=== PATIENT | male | born 1980 | race Hispanic/Latino ===

== ENCOUNTER 2023-01-27 04:56 | Emergency (ER) | payer SELFPAY ==
[2023-01-27 04:58] VITALS: BP 138/89; PULSE 69; RESP 20; TEMP 36.1; O2SAT 92; BMI 31.6
--- NOTE | 2023-01-27 05:03 | CT_ITS ---
EXAM: CT ABDOMEN AND PELVIS WITH INTRAVENOUS CONTRAST CLINICAL INDICATION: LLQ pain LLQ pain TECHNIQUE: Helically acquired images were obtained of the abdomen and pelvis with intravenous contrast. This CT exam was performed using one or more of the following dose reduction techniques: automated exposure control, adjustment of the mA and/or kV according to patient size, and/or use of iterative reconstruction technique. CONTRAST: IV 100mL Isovue-370 RADIATION DOSE: CTDIvol = 14.82 mGy, DLP = 861.49 mGy-cm COMPARISON: No relevant prior studies available. FINDINGS: LOWER THORAX: Unremarkable. Lung bases are clear. No cardiomegaly. No significant pericardial effusion. ABDOMEN: LIVER: Unremarkable. Homogeneous. No focal mass. GALLBLADDER AND BILE DUCTS: Unremarkable. No calcified gallstones. No gallbladder distention or wall edema. No intra- or extrahepatic biliary ductal dilation. PANCREAS: Unremarkable. No focal cystic or solid mass. SPLEEN: Unremarkable. Normal size without focal cystic or solid mass. ADRENALS: Unremarkable. No nodules. KIDNEYS AND URETERS: There is a small left renal cyst which is too small to reliably characterize. No follow-up imaging is necessary for simple renal cysts or cysts that are too small to characterize. Normal renal size and position. No hydronephrosis. STOMACH AND BOWEL: There are colonic diverticula. As seen on axial images 74-90, there is infiltration of fat overlying the anterior and lateral aspects of the distal descending colon. There is no demonstrated mural thickening of the adjacent colon and configuration of the anterior fat infiltration suggest epiploic appendagitis. Acute diverticulitis in this region is thought to be unlikely. No stomach or bowel distention. PELVIS: APPENDIX: A normal appendix is seen on axial images 71-81. BLADDER: Unremarkable. REPRODUCTIVE: Unremarkable as visualized. No mass. ABDOMEN and PELVIS: INTRAPERITONEAL SPACE: Unremarkable. No ascites or other fluid collection. No free air. BONES/JOINTS: There are multilevel degenerative changes in the visualized spine. No suspicious lytic or blastic abnormality. SOFT TISSUES: There are bilateral inguinal hernias which contain fat. VASCULATURE: Unremarkable. Abdominal aorta is non-dilated. LYMPH NODES: Unremarkable. No enlarged lymph nodes. CT/Abdomen/Pelvis W IV Cont ONLY IMPRESSION: 1. Infiltration of fat adjacent to the distal descending colon. This is likely to represent epiploic appendagitis. 2. Colonic diverticulosis. Acute diverticulitis is thought to be unlikely. 3. Bilateral inguinal hernias containing fat, but no bowel. Electronically Signed: Darren Ma MD at 6:33 EDT Reading Location ID and State: [facility] / [place] , Service support ,
--- NOTE | 2023-01-27 05:05 | ED.VIS.GI ---
HPI HPI - GI History of Present Illness Chief Complaint: Abd Pain Informant: patient Abdominal Pain/Flank Pain Onset: Days (1-2) Context: Gradual Onset Timing: Continuous Quality: Aching Location: LLQ Current Severity: Severe Maximum Severity: Severe Worsened by: - (walking, coughing) Relieved by: Remaining Still Nausea/Vomiting/Emesis GI Symptom: Positive for Nausea; Negative for Vomiting Diarrhea/Melena/Hematochezia GI Symptom: Negative for Diarrhea, Melena or Hematochezia Associated Symptoms Associated Symptoms: Negative for Dysuria, Frequency, Hematuria or Urgency Narrative Narrative: Fijian-speaking patient with progressively worsening pain in the left lower quadrant seem to start gradually yesterday. States he had this before, but it was not this bad. Takes no medications for any medical problems. Denies any problems urinating, pain is not in his back or in his chest. No vomiting. No blood in stool. Initially last putter away line was accessed but we had technical difficulties with the hardware and were unable to use it to translate, so the patient was okay with my limited Fijian and using his own cell phone eris to help translate when necessary. PFSH PFSH Medical History no medical history no medical history Home Medications amoxicillin 875 mg-potassium clavulanate 125 mg tablet 875 mg (0.875 x 875-125 mg) PO Q12H #20 TABLETS 01/27/23 [Rx Last Taken Unknown] hydrocodone-acetaminophen 5-325mg 5mg-325mg 1 tab PO Q6H PRN PRN Pain 3 days #12 TABLETS 01/27/23 [Rx Last Taken Unknown] Allergy/AdvReac Type Severity Reaction Status Date / Time No Known Allergies Allergy Verified 01/27/23 05:07 Surgical History no surgical history no surgical history Social History Smoking Status: Never smoker ROS ROS ED Constitutional Constitutional ED: Denies chills or fever(s) Eyes Eyes: Denies change in vision or diplopia ENT ENT ED: Denies rhinorrhea or sore throat Cardiovascular Cardiovascular: Denies chest pain or palpitations Respiratory/Chest Respiratory/Chest: Denies cough or dyspnea Gastrointestinal Gastrointestinal: Reports abdominal pain and nausea; Denies diarrhea, hematochezia or vomiting Genitourinary Genitourinary ED: Denies dysuria or hematuria Musculoskeletal Musculoskeletal: Denies back pain or neck pain Integumentary Denies abscess or rash Neurologic Neurologic: Denies headache(s), paresthesias or weakness Psychiatric Psychiatric: Denies anxiety or suicidal thoughts EXAM Physical Exam Const Vital Signs: 01/27/23 04:58 Temperature 97 F L Temperature Source Temporal Pulse Rate 69 Respiratory Rate 20 H Blood Pressure 138/89 H Blood Pressure Mean 105 Pulse Ox 92 Oxygen Delivery Method Room Air Positive well nourished and well developed General Appearance ED: well developed and NAD HEENT Reports moist mucous membranes normocephalic and atraumatic Eyes PERRL and EOMs intact bilaterally Neck full ROM and supple Resp normal respiratory effort and clear to auscultation bilaterally Cardio regular rate, regular rhythm and no murmurs GI non-distended GI Narrative: Very tender in the left lower quadrant, also tender in the left mid and upper abdomen but not as bad as the lower. No guarding or rebound tenderness. No other areas of tenderness, right side of the abdomen benign throughout. Auscultation: normoactive bowel sounds Palpation: soft Back/Spine no CVA tenderness General Back: other FROM Extremity normal to inspection General Extremety ED: Negative for edema, pulses abnormal or tenderness General Extremity: Negative for edema or pulses abnormal Neuro oriented x3, CN's II-XII intact bilaterally and no sensory deficits noted Sensorium / Orientation: awake and alert Motor Exam: strength 5/5 throughout Skin no rashes or lesions noted and no wounds MDM MDM MDM Narrative Medical decision making narrative: Basic labs are unremarkable, I did perform a CT scan with IV contrast involving the abdomen and pelvis, given that diverticulitis was high on the differential, but also kidney stone and/or infection also in the realm of possibility. I reviewed the CT images, as well as report which I agree with, which is consistent with epiploic appendagitis, but radiology also states that there is diverticulosis, my concern is that this could be a component of diverticulitis. He does not have a significant leukocytosis, but I am going to err on the side of caution and treat him for diverticulitis because he does not have a PCP or close outpatient follow-up. He does not have any antibiotic or medication allergies. Because he drove himself, we treated him with IV fluids, Zofran, Toradol, although it did not help his pain a lot, he was stable and able to be given a prescription for pain medication which she can take when he gets home. We will start him on antibiotics, since we have an IV will give him a dose of Zosyn, and will prescribe him Augmentin to use at home. We had a conversation using a last putter away apps on cell phone, and answered all of his questions to the best of my ability. Close outpatient follow-up advised, referred to the next physician on the unassigned list. History & Record Review Additional record(s) reviewed:: No prior records Lab Data Attestation: I reviewed the patient's lab results. Labs: Laboratory Results - last 24 hr 01/27/23 01/27/23 05:14 05:49 WBC 8.6 RBC 5.09 Hgb 14.1 Hct 42.5 MCV 83.5 MCH 27.7 MCHC 33.2 RDW Std Deviation 39.6 RDW Coeff of Radha 13.0 Plt Count 296 MPV 10.1 Immature Gran % (Auto) 0.300 Neut % (Auto) 58.0 Lymph % (Auto) 30.3 [place] % (Auto) 7.1 Eos % (Auto) 3.8 Baso % (Auto) 0.5 Absolute Neuts (auto) 5.0 Absolute Lymphs (auto) 2.60 Nucleated RBC % 0 Sodium 139 Potassium 3.9 Chloride 109 H Carbon Dioxide 26.0 Anion Gap 4 L BUN 12 Creatinine 0.81 Estim Creat Clear Calc 97.57 Est GFR (MDRD) Af Amer 135 Est GFR (MDRD) Non-Af 112 BUN/Creatinine Ratio 14.8 Glucose 99 Calcium 8.5 Urine Color Yellow Urine Clarity Clear Urine pH 6.5 Ur Specific [place] 1.005 Urine Protein 15 H Urine Glucose (UA) Normal Urine Ketones Negative Urine Occult Blood Negative Urine Nitrite Negative Urine Bilirubin Negative Urine Urobilinogen Normal Ur Leukocyte Esterase Negative Urine RBC 0 SEEN Urine WBC 0 SEEN Ur Squamous Epith Cells 0 SEEN Urine Bacteria 0 SEEN Urine Mucus 0 SEEN Radiography Diagnostic Testing: Clinical Impression(s) from Imaging Studies Abdomen/Pelvis CT 01/27/23 05:03 IMPRESSION: 1. Infiltration of fat adjacent to the distal descending colon. This is likely to represent epiploic appendagitis. 2. Colonic diverticulosis. Acute diverticulitis is thought to be unlikely. 3. Bilateral inguinal hernias containing fat, but no bowel. Electronically Signed: Darren Ma MD at 6:33 EDT , Discharge Plan Triage Chief Complaint: Abd Pain ED Provider: Toni Cisneros Dx/Rx/DC Orders Clinical Impression: Acute diverticulitis, Epiploic appendagitis Instructions: Diverticulitis Dc Prescriptions: New hydrocodone-acetaminophen [hydrocodone-acetaminophen] 5-325 mg tablet 1 tab PO Q6H PRN PRN (Reason: Pain) 3 Days Qty: 12 0RF amoxicillin-pot clavulanate [amoxicillin-pot clavulanate] 875-125 mg tablet 875 mg PO Q12H Qty: 20 0RF Primary Care Provider: Care Physician,No Primary Referrals: Farzana Jasso MD [Med Staff - Household Appliances Service Technician] - 1 Week (call for appt) Care Physician,No Primary [Primary Care Provider] - Print Language: Fijian Disposition Disposition: Home, Self Care
[2023-01-27] MEDS: Ketorolac 30 MG/ML Syringe IV (05:10)
[2023-01-27] MEDS: 0.9% Normal Saline 1,000 ML 1000 ML IV (05:10)
[2023-01-27] MEDS: Ondansetron 4 MG/2 ML Vial IV (05:10)
[2023-01-27 05:23] LABS: Basophil# 0.04 X10^3/uL; Basophil% 0.5 % (0-1); Eosinophil# 0.33 X10^3/uL; Eosinophils% 3.8 % (0-5); Hematocrit 42.5 % (40-54); Hemoglobin 14.1 g/dL (13.0-16.5); Lymphocyte % 30.3 % (19-41); Mean Corp Hgb Conc 33.2 g/dL (32-36); Mean Corpuscular Hgb 27.7 pg (27.0-32.0); Mean Corpuscular Volume 83.5 fL (80-94); Mean Platelet Vol. 10.1 fl (6.2-12.0); Monocyte# 0.61 X10^3/uL; Monocyte% 7.1 % (0-10); NRBC Flagged by Analyzer 0 % (0-5); Neutrophil # 4.97 X10^3/uL (2.7-7.7); Platelet Count 296 K/mm3 (150-450); RBC Distribution Width SD 39.6 fl (35.1-43.9); Red Blood Count 5.09 M/mm3 (4.6-6.2); White Blood Count 8.6 K/mm3 (4.4-11.0)
[2023-01-27 05:38] LABS: Anion Gap 4 (5-15); BUN 12 mg/dL (7-18); BUN/Creat Ratio 14.8 RATIO (10-20); Calcium,Total 8.5 mg/dL (8.5-10.1); Chloride 109 mmol/L (98-107); Creatinine, Serum 0.81 mg/dL (0.70-1.30); EST Glomerular Filtration Rate 112 mL/min (>60); Est Glom Filt Rate - Afr Amer 135 mL/min (>60); Estimated Creatinine Clearance 97.57 ml/min; Glucose 99 mg/dL (74-106); Potassium 3.9 mmol/L (3.5-5.1); Sodium Level 139 mmol/L (136-145)
[2023-01-27 05:54] LABS: Bacteria 0 SEEN /hpf (None Seen); Mucous, Urine 0 SEEN /hpf (<or=2+); Red Blood Cells-Urine 0 SEEN /hpf (0-5); Squamous Epithelial Cells - UA 0 SEEN /hpf (0-5); White Blood Cells 0 SEEN /hpf (0-5)
[2023-01-27 06:01] LABS: Color, Urine Yellow (Yellow); Glucose, Dipstick Normal (Normal); Ketone-Dipstick Negative (Negative); Leukocyte Esterase-Dipstick Negative /ul (Negative); Nitrite-Dipstick Negative (Negative); Occult Blood-Urine Negative /ul (Negative); Protein-Dipstick 15 mg/dl (Negative); Specific Gravity, Urine 1.005 (1.002-1.030); Urine Bilirubin Dipstick Negative (Negative); Urine Clarity Clear (Clear); Urine Urobilinogen Normal (Normal); Urine pH 6.5 (5.0 - 8.0)
[2023-01-27 06:57] VITALS: BP 132/90; PULSE 61; RESP 16; TEMP 36; O2SAT 96
[2023-01-27 07:20] VITALS: BP 138/92; PULSE 64; RESP 18; TEMP 35.9; O2SAT 99
== END 2023-01-27 07:27 | disposition home or self-care (01) ==
PROVIDERS: Emergency Provider Emergency Medicine; Visit Provider Emergency Medicine
DX: K57.92 Diverticulitis of intestine, part unspecified, without perforation or abscess without bleeding (principal)
CPT/HCPCS: 74177; 80048; 81001; 85025; 96361; 96365; 96376; 99283; J7030; Q9967; A4216; J2405

== ENCOUNTER 2023-02-26 23:47 | Emergency (ER) | payer SELFPAY ==
[2023-02-26 23:48] VITALS: BP 138/90; PULSE 69; RESP 18; TEMP 36.8; O2SAT 99; BMI 32.3
--- NOTE | 2023-02-27 00:15 | CT_ITS ---
INDICATION: Abdominal Pain EXAMINATION: CT ABDOMEN AND PELVIS WITH CONTRAST - CT Abdomen And Pelvis W/ Contrast Injection TECHNIQUE: Helically acquired images were obtained of the abdomen and pelvis following IV contrast. A radiation dose optimization technique was used for this scan. IV Contrast dosage and agent: 100 mL Isovue-370 Oral contrast: None. COMPARISON: January 27, 2023. FINDINGS: LOWER CHEST: Lung bases are clear. No cardiomegaly or pericardial effusion. LIVER: Homogeneous. No focal mass. GALLBLADDER AND BILIARY TREE: No calcified gallstones. No gallbladder distension or wall edema. No intra- or extrahepatic biliary ductal dilation. PANCREAS: No focal cystic or solid mass. SPLEEN: Normal size without focal cystic or solid mass. ADRENAL GLANDS: No nodules. KIDNEYS AND URETERS: Normal renal size and position. No hydronephrosis. PERITONEUM: No ascites or free air. No other fluid collection. BOWEL: There is decreased but persistent inflammation anterior to the junction of descending and sigmoid colon surrounding fat lobule with central vascular pedicle, coronal image 41 axial image [id number] . Scattered superimposed diverticula are present along the colon without focal inflamed diverticulum. No abscess. No free fluid. No free air. No acute gastric finding. No small bowel distention or focal wall thickening. Normal appendix. LYMPH NODES: No enlarged mesenteric or retroperitoneal lymph nodes. VESSELS: Aorta is non-dilated. URINARY BLADDER: Unremarkable. ABDOMINAL WALL: No discrete abdominal or pelvic wall hernia. BONES: No lytic or blastic abnormality. CT/Abdomen/Pelvis W IV Cont ONLY IMPRESSION: Findings consistent with distal colonic epiploic appendagitis, commonly treated with NSAIDs. While there are scattered colonic diverticula no focal inflamed diverticulum is appreciated. Electronically Signed: Ant Allen MD at 1:59 EDT ,
[2023-02-27 00:22] LABS: Absolute Lymphocyte Count 2.85 X10^3/uL (0.83-4.51); Absolute Neutrophil Count 2.9 X10^3/uL (2.0-7.7); Basophil# 0.05 X10^3/uL; Basophil% 0.8 % (0-1); Eosinophil# 0.31 X10^3/uL; Eosinophils% 4.7 % (0-5); Hematocrit 44.7 % (40-54); Hemoglobin 14.8 g/dL (13.0-16.5); Lymphocyte # 2.85 X10^3/ul (0.83-4.51); Lymphocyte % 43.4 % (19-41); Mean Corp Hgb Conc 33.1 g/dL (32-36); Mean Corpuscular Hgb 27.7 pg (27.0-32.0); Mean Corpuscular Volume 83.6 fL (80-94); Mean Platelet Vol. 10.6 fl (6.2-12.0); Monocyte# 0.44 X10^3/uL; Monocyte% 6.7 % (0-10); NRBC Flagged by Analyzer 0 % (0-5); Neutrophil # 2.88 X10^3/uL (2.7-7.7); Neutrophil % 43.9 % (47-70); Platelet Count 295 K/mm3 (150-450); RBC Distribution Width CV 12.7 % (11.6-14.6); RBC Distribution Width SD 38.3 fl (35.1-43.9); Red Blood Count 5.35 M/mm3 (4.6-6.2); White Blood Count 6.6 K/mm3 (4.4-11.0)
--- NOTE | 2023-02-27 00:24 | EDS_ITS ---
HPI HPI - GI History of Present Illness Chief Complaint: Abd Pain Narrative Narrative: History and physical is limited secondary to patient being mainly Greenlandic- speaking. [employer] historic interpreter was used. Patient states he was seen in the emergency department approximately 1 month ago on January 27 and diagnosed with diverticulitis. He was given 10 days of antibiotics. Initially he followed up with a doctor, but there was delay as he states he had medical insurance issues. He states that over the last week he has had nausea, diarrhea and now right lower quadrant abdominal pain. He denies any fevers or chills, no vomiting, he thinks that his diverticulitis is acting up again, although his pain in his left lower quadrant had resolved. He has been having diarrhea even since before he was diagnosed with diverticulitis, over the last month. [facility] Medical History Diverticulitis Home Medications amoxicillin 875 mg-potassium clavulanate 125 mg tablet 875 mg (0.875 x 875-125 mg) PO Q12H #20 TABLETS 01/27/23 [Rx Last Taken Unknown] hydrocodone-acetaminophen 5-325mg 5mg-325mg 1 tab PO Q6H PRN PRN Pain 3 days #12 TABLETS 01/27/23 [Rx Last Taken Unknown] ibuprofen 600 mg tablet 600 mg PO Q8H PRN pain #20 TABLETS 02/27/23 [Rx Last Taken Unknown] Allergy/AdvReac Type Severity Reaction Status Date / Time No Known Allergies Allergy Verified 02/26/23 23:50 Social History Smoking Status: Never smoker ROS ROS ED ROS Narrative Constitutional: No fever, no chills. HEENT: No sore throat. No neck pain. No loss of vision. No rhinorrhea. Cardiovascular: No chest pain. No palpitations. No pedal edema. Respiratory: No cough, no shortness of breath. Abdominal: Lower quadrant abdominal pain. Positive nausea. No vomiting. Positive diarrhea Genitourinary: No dysuria. No hematuria. Musculoskeletal: No myalgias. No arthralgias. Neurologic: No headaches. No dizziness. No lightheadedness. Skin: No rash. No change in color. Psychiatric: No depression. No anxiety. EXAM Physical Exam Narrative Exam Narrative: Afebrile. Vital signs noted. HEENT: Normocephalic. Atraumatic. PERRL, EOMI. Neck soft and supple. No point tenderness or step off. Cardiovascular: Regular rate and rhythm. No murmurs, rubs, or gallops appreciated. Respiratory: No tachypnea. Lungs clear to auscultation bilaterally. Gastrointestinal: Abdomen soft, tenderness to palpation right lower quadrant with normoactive bowel sounds. No rebound or guarding. Neurological: Awake. Alert. Nonfocal, nonlateralizing. Skin: No rash. Normal color. No pallor. Musculoskeletal: No pedal edema. Full range of motion extremities. Const Vital Signs: 02/26/23 23:48 02/27/23 00:45 Temperature 98.3 F Temperature Source Temporal Pulse Rate 69 57 L Respiratory Rate 18 17 Blood Pressure 138/90 H 142/90 H Blood Pressure Mean 106 107 Pulse Ox 99 98 Oxygen Delivery Method Room Air Room Air MDM MDM MDM Narrative Medical decision making narrative: In the differential diagnosis is right-sided diverticulitis versus appendicitis versus diverticular abscess. Comprehensive work-up was pursued. He will be administered morphine and Zofran for analgesia and bolused a liter of normal saline 1 L intravenously. I do feel CT imaging is indicated to help rule out abscess or acute diverticulitis on the right. I reviewed his laboratory work and he has a normal white count of 6.6, hemoglobin normal at 14.8, platelet count normal at 295, CMP is remarkable for a low anion gap of 4, glucose appropriately elevated at 107 with normal sodium and normal creatinine. LFTs show AST low at 12 which I think is nonspecific ALT normal at 33. Urinalysis is negative for infection. I do not feel antibiotics are indicated. I reviewed the CT report of the abdomen and pelvis with IV contrast. While there is no evidence of acute diverticulitis, and no evidence of abscess, findings are consistent with epiploic appendagitis which is treated with NSAIDs. He was given Toradol 30 mg IV prior to discharge. I wrote him a prescription for ibuprofen 600 mg #20, and he was referred to gastroenterology. I feel he be discharged safely home with follow-up as the treatment is with NSAIDs. Return instructions to the emergency department were reviewed. I do not feel further antibiotics are indicated as well. Disposition is discharged home in stable condition. All questions answered. History & Record Review Discussion w/independent historian: Patient Additional record(s) reviewed:: Prior ED visit Lab Data Attestation: I reviewed the patient's lab results. Labs: Laboratory Results - last 24 hr 02/27/23 02/27/23 00:10 00:53 WBC 6.6 RBC 5.35 Hgb 14.8 Hct 44.7 MCV 83.6 MCH 27.7 MCHC 33.1 RDW Std Deviation 38.3 RDW Coeff of Radha 12.7 Plt Count 295 MPV 10.6 Immature Gran % (Auto) 0.500 Neut % (Auto) 43.9 L Lymph % (Auto) 43.4 H [place] % (Auto) 6.7 Eos % (Auto) 4.7 Baso % (Auto) 0.8 Absolute Neuts (auto) 2.9 Absolute Lymphs (auto) 2.85 Nucleated RBC % 0 Sodium 140 Potassium 3.5 Chloride 108 H Carbon Dioxide 28.0 Anion Gap 4 L BUN 13 Creatinine 0.79 Estim Creat Clear Calc 91.95 Est GFR (MDRD) Af Amer 139 Est GFR (MDRD) Non-Af 115 BUN/Creatinine Ratio 16.5 Glucose 107 H Calcium 8.7 Total Bilirubin 0.60 AST 12 L ALT 33 Alkaline Phosphatase 112 Total Protein 7.4 Albumin 3.9 Globulin 3.5 Albumin/Globulin Ratio 1.1 Urine Color Yellow Urine Clarity Clear Urine pH 6.0 Ur Specific [place] 1.025 Urine Protein 15 H Urine Glucose (UA) Normal Urine Ketones Negative Urine Occult Blood Negative Urine Nitrite Negative Urine Bilirubin Negative Urine Urobilinogen Normal Ur Leukocyte Esterase Negative Urine RBC 0-5 SEEN Urine WBC 0 SEEN Ur Squamous Epith Cells 0 SEEN Urine Bacteria RARE Urine Mucus 1+ Radiography Diagnostic Testing: Clinical Impression(s) from Imaging Studies Abdomen/Pelvis CT 02/27/23 00:15 IMPRESSION: Findings consistent with distal colonic epiploic appendagitis, commonly treated with NSAIDs. While there are scattered colonic diverticula no focal inflamed diverticulum is appreciated. Electronically Signed: Ant Allen MD at 1:59 EDT , Discharge Plan Triage Chief Complaint: Abd Pain ED Provider: Marcelo Alanis Dx/Rx/DC Orders Clinical Impression: Epiploic appendagitis, Diarrhea Instructions: Treating Diarrhea, ED Understanding Colitis, ED Diarrhea, Unknown Cause Prescriptions: New ibuprofen 600 mg tablet 600 mg PO Q8H PRN (Reason: pain) Qty: 20 0RF No Action hydrocodone-acetaminophen [hydrocodone-acetaminophen] 5-325 mg tablet 1 tab PO Q6H PRN PRN (Reason: Pain) 3 Days Qty: 12 0RF amoxicillin-pot clavulanate [amoxicillin-pot clavulanate] 875-125 mg tablet 875 mg PO Q12H Qty: 20 0RF Primary Care Provider: Care Physician,No Primary Referrals: Friend,Demetrius, DO [Med Staff - Active Staff] - As soon as possible Care Physician,No Primary [Primary Care Provider] - Activity Restrictions/Additional Instructions: Take your anti-inflammatories as directed. Return with increased pain, new or worsening symptoms. Disposition Disposition: Home, Self Care
[2023-02-27] MEDS: 0.9% Normal Saline (1000mL) 1,000 ML 1000 ML IV (00:28)
[2023-02-27 00:39] LABS: ALB/GLOB Ratio 1.1 RATIO (0.9-2.4); AST(SGOT) 12 U/L (15-37); Alanine Aminotransfer ALT/SGPT 33 U/L (16-61); Albumin, Serum 3.9 g/dL (3.2-5.0); Alkaline Phosphatase 112 U/L (45-117); Anion Gap 4 (5-15); BUN 13 mg/dL (7-18); BUN/Creat Ratio 16.5 RATIO (10-20); Calcium,Total 8.7 mg/dL (8.5-10.1); Chloride 108 mmol/L (98-107); Creatinine, Serum 0.79 mg/dL (0.70-1.30); EST Glomerular Filtration Rate 115 mL/min (>60); Est Glom Filt Rate - Afr Amer 139 mL/min (>60); Estimated Creatinine Clearance 91.95 ml/min; Globulin 3.5 g/dL (2.2-4.2); Glucose 107 mg/dL (74-106); Potassium 3.5 mmol/L (3.5-5.1); Protein, Total 7.4 g/dL (6.4-8.2); Sodium Level 140 mmol/L (136-145)
[2023-02-27 00:45] VITALS: BP 142/90; PULSE 57; RESP 17; O2SAT 98
[2023-02-27] MEDS: Morphine 4 MG/ML Syringe IV (00:47)
[2023-02-27] MEDS: Ondansetron 4 MG/2 ML Vial IV (00:47)
[2023-02-27 00:56] LABS: Squamous Epithelial Cells - UA 0 SEEN /hpf (0-5); White Blood Cells 0 SEEN /hpf (0-5)
[2023-02-27 00:57] LABS: Color, Urine Yellow (Yellow); Glucose, Dipstick Normal (Normal); Ketone-Dipstick Negative (Negative); Leukocyte Esterase-Dipstick Negative /ul (Negative); Nitrite-Dipstick Negative (Negative); Occult Blood-Urine Negative /ul (Negative); Protein-Dipstick 15 mg/dl (Negative); Specific Gravity, Urine 1.025 (1.002-1.030); Urine Bilirubin Dipstick Negative (Negative); Urine Clarity Clear (Clear); Urine Urobilinogen Normal (Normal)
[2023-02-27 01:03] LABS: Bacteria RARE /hpf (None Seen); Mucous, Urine 1+ /hpf (<or=2+); Red Blood Cells-Urine 0-5 SEEN /hpf (0-5)
[2023-02-27 02:00] VITALS: BP 118/73; PULSE 60; RESP 16; O2SAT 9
[2023-02-27] MEDS: Ketorolac 30 MG/ML Syringe IV (02:48)
== END 2023-02-27 03:03 | disposition home or self-care (01) ==
PROVIDERS: Emergency Provider Emergency Medicine; Visit Provider Emergency Medicine
DX: K63.89 Other specified diseases of intestine (principal); Q43.8 Other specified congenital malformations of intestine; Z87.19 Personal history of other diseases of the digestive system
CPT/HCPCS: 74177; 80053; 81001; 85025; 96361; 96374; 96375; 99283; J7030; Q9967; A4216; J2405

== ENCOUNTER 2024-04-18 22:59 | Emergency (ER) | payer OTHER, SELFPAY ==
[2024-04-18 23:00] VITALS: BP 176/102; PULSE 68; RESP 18; TEMP 37.2; O2SAT 96; BMI 31.2
[2024-04-18] MEDS: Ketorolac 30 MG/ML Syringe IV (23:41)
[2024-04-19] VITALS: BP 134/83; PULSE 67; RESP 18; O2SAT 97
[2024-04-19 00:31] LABS: Anion Gap 8 (5-15); BUN 16 mg/dL (7-18); BUN/Creat Ratio 18.8 RATIO (10-20); Calcium,Total 8.5 mg/dL (8.5-10.1); Chloride 106 mmol/L (98-107); Creatinine, Serum 0.85 mg/dL (0.70-1.30); EST Glomerular Filtration Rate 105 mL/min (>60); Est Glom Filt Rate - Afr Amer 127 mL/min (>60); Estimated Creatinine Clearance 99.29 ml/min; Glucose 114 mg/dL (74-106); Potassium 3.2 mmol/L (3.5-5.1); Sodium Level 139 mmol/L (136-145); Troponin-I HS 38 pg/mL (3.0-78.0)
[2024-04-19 00:46] LABS: D-Dimer Quantitative (DVT/PE) 0.27 FEU/ug/m (0.27-0.49)
[2024-04-19 00:53] LABS: Absolute Lymphocyte Count 2.52 X10^3/uL (0.83-4.51); Absolute Neutrophil Count 3.4 X10^3/uL (2.0-7.7); Basophil# 0.05 X10^3/uL; Basophil% 0.7 % (0-1); Eosinophil# 0.28 X10^3/uL; Eosinophils% 4.1 % (0-5); Hematocrit 42.6 % (40-54); Hemoglobin 14.1 g/dL (13.0-16.5); Lymphocyte # 2.52 X10^3/ul (0.83-4.51); Lymphocyte % 36.9 % (19-41); Mean Corp Hgb Conc 33.1 g/dL (32-36); Mean Corpuscular Hgb 27.4 pg (27.0-32.0); Mean Corpuscular Volume 82.9 fL (80-94); Mean Platelet Vol. 10.6 fl (6.2-12.0); Monocyte# 0.53 X10^3/uL; Monocyte% 7.8 % (0-10); NRBC Flagged by Analyzer 0 % (0-5); Neutrophil # 3.37 X10^3/uL (2.7-7.7); Neutrophil % 49.3 % (47-70); Platelet Count 335 K/mm3 (150-450); RBC Distribution Width SD 38.8 fl (35.1-43.9); Red Blood Count 5.14 M/mm3 (4.6-6.2); White Blood Count 6.8 K/mm3 (4.4-11.0)
[2024-04-19 01:00] VITALS: BP 140/91; PULSE 69; RESP 18; O2SAT 96
[2024-04-19 01:26] LABS: Troponin-I HS 41 pg/mL (3.0-78.0)
[2024-04-19 01:44] VITALS: BP 129/81; PULSE 58; RESP 16; TEMP 37.2; O2SAT 100
== END 2024-04-19 01:45 | disposition home or self-care (01) ==
PROVIDERS: Emergency Provider Emergency Medicine; Visit Provider Emergency Medicine
DX: R07.9 Chest pain, unspecified (principal)
CPT/HCPCS: 71045; 80048; 84484; 85025; 85379; 93005; 96374; 99284; A4216

== ENCOUNTER 2024-05-21 23:33 | Emergency (ER) | payer OTHER, SELFPAY ==
[2024-05-21 23:33] VITALS: BP 137/92; PULSE 71; RESP 18; TEMP 36.8; O2SAT 97; BMI 36.5
--- NOTE | 2024-05-22 | CT_ITS ---
INDICATION: sore throat EXAMINATION: CT NECK WITH CONTRAST - CT Soft Tissue Neck W/ Contrast Injection TECHNIQUE: Helically acquired images were obtained of the neck following IV contrast. The protocol utilizes one or more of the following dose reduction techniques: automated exposure control, adjustment of mA and/or kV according to patient size,and/or use of iterative reconstruction technique. IV Contrast dosage and agent: 75 mL of Isovue-370 RADIATION DOSAGE (If Supplied By Facility): CTDIvol = ( 17.95 ) mGy, DLP = ( 524.54 ) mGycm COMPARISON: No relevant prior comparison study available FINDINGS: NASOPHARYNX: Unremarkable. SUPRAHYOID NECK: Unremarkable oropharynx, oral cavity, parapharyngeal space, and retropharyngeal space. INFRAHYOID NECK: Unremarkable larynx, hypopharynx, and supraglottis. THYROID: No focal lesions. SALIVARY GLANDS: Unremarkable. LYMPH NODES: No cervical or supraclavicular lymphadenopathy. VASCULAR STRUCTURES: Unremarkable. VISUALIZED PORTIONS OF THE ORBITS, PARANASAL SINUSES, MASTOID AIR CELLS AND SKULL BASE: Unremarkable. BONES: Unremarkable. THORACIC INLET: Clear lung apices. CT/Soft Tissue Neck WITH Contrast IMPRESSION: No lymphadenopathy. No fluid collection. Electronically Signed: Mango Ron MD at 0:34 EST ,
[2024-05-22] MEDS: Ketorolac 30 MG/ML Syringe IV (00:06)
[2024-05-22] MEDS: 0.9% Normal Saline (1000mL) 1,000 ML 999 ML IV (00:06)
[2024-05-22] MEDS: dexAMETHasone 10 MG/ML Vial IV (00:07)
[2024-05-22 00:25] LABS: Absolute Lymphocyte Count 2.07 X10^3/uL (0.83-4.51); Absolute Neutrophil Count 4.5 X10^3/uL (2.0-7.7); Basophil# 0.04 X10^3/uL; Basophil% 0.5 % (0-1); Eosinophil# 0.35 X10^3/uL; Eosinophils% 4.5 % (0-5); Hemoglobin 13.8 g/dL (13.0-16.5); Lymphocyte # 2.07 X10^3/ul (0.83-4.51); Lymphocyte % 26.8 % (19-41); Mean Corp Hgb Conc 32.9 g/dL (32-36); Mean Corpuscular Hgb 27.4 pg (27.0-32.0); Mean Corpuscular Volume 83.5 fL (80-94); Mean Platelet Vol. 9.9 fl (6.2-12.0); Monocyte# 0.69 X10^3/uL; Monocyte% 8.9 % (0-10); NRBC Flagged by Analyzer 0 % (0-5); Neutrophil # 4.54 X10^3/uL (2.7-7.7); Platelet Count 327 K/mm3 (150-450); RBC Distribution Width CV 13.2 % (11.6-14.6); RBC Distribution Width SD 39.9 fl (35.1-43.9); Red Blood Count 5.03 M/mm3 (4.6-6.2); White Blood Count 7.7 K/mm3 (4.4-11.0)
[2024-05-22 00:28] LABS: Anion Gap 6 (5-15); BUN 16 mg/dL (7-18); BUN/Creat Ratio 20.6 RATIO (10-20); Calcium,Total 8.3 mg/dL (8.5-10.1); Chloride 108 mmol/L (98-107); Creatinine, Serum 0.78 mg/dL (0.70-1.30); EST Glomerular Filtration Rate 117 mL/min (>60); Est Glom Filt Rate - Afr Amer 141 mL/min (>60); Glucose 112 mg/dL (74-106); Potassium 3.7 mmol/L (3.5-5.1); Sodium Level 139 mmol/L (136-145)
[2024-05-22 00:38] LABS: Internal QC Validated? YES +Cl - CLEAR BKGD; Monotest Negative (Negative); Record Kit Lot#, Mono 13241033
--- NOTE | 2024-05-22 01:51 | EDS_ITS ---
HPI History of Present Illness Chief Complaint: Sore Throat Informant: patient Narrative Narrative: Patient is a 43-year-old male with no significant past medical history. He states for approximately 5 to 7 days he has had a sore throat. He states that he went and saw a doctor for this when it first began and was tested for strep and this was negative. He states he was informed he needs to take ibuprofen and has been doing so but he has had persistent sore throat. He states it is painful to swallow and also feels like it is difficult to swallow. As the symptoms have not improved he presents for repeat evaluation [facility] Medical History Diverticulitis Home Medications ?Medication ?Instructions ?Recorded ?Last Taken ?Type oxycodone-acetaminophen 5 mg-325 1 tab PO Q6H PRN pain 3 days #12 05/22/24 Unknown Rx mg tablet (Percocet) tabs prednisone 20 mg tablet 40 mg (2 x 20 mg) PO DAILY 5 days 05/22/24 Unknown Rx #10 tabs Allergy/AdvReac Type Severity Reaction Status Date / Time No Known Allergies Allergy Verified 05/21/24 23:35 Social History Smoking Status: Never smoker ROS ROS ED Constitutional Constitutional ED: Denies chills or fever(s) ENT ENT ED: Reports sore throat; Denies rhinorrhea Cardiovascular Cardiovascular: Denies chest pain Respiratory/Chest Respiratory/Chest: Denies cough or dyspnea Gastrointestinal Gastrointestinal: Denies abdominal pain, diarrhea, nausea or vomiting Genitourinary Genitourinary ED: Denies dysuria Musculoskeletal Musculoskeletal: Reports neck pain; Denies myalgias Integumentary Denies rash Neurologic Neurologic: Denies headache(s) Hematologic/Lymphatic Hematologic/Lymphatic: Denies easy bleeding or easy bruising Allergic/Immunologic Allergic/Immunologic ED: Denies mouth swelling or tongue swelling EXAM Physical Exam Const Vital Signs: 05/21/24 23:33 05/22/24 02:19 Temperature 98.3 F 98.2 F Temperature Source Temporal Pulse Rate 71 88 Respiratory Rate 18 16 Blood Pressure 137/92 H 126/82 H Blood Pressure Mean 107 96 Pulse Ox 97 100 Oxygen Delivery Method Room Air Positive well nourished and well developed General Appearance ED: well developed; Negative for pallor HEENT Reports moist mucous membranes HEENT Narrative: No tongue or lip swelling no oral lesions no airway edema or compromise There is +1 tonsillar pressure B bilaterally with mild erythema. Faint hard palate petechiae are noted. No exudates. No trismus change in voice or difficulty with secretions Eyes PERRL and EOMs intact bilaterally Neck supple Neck Narrative: No brawny edema in the submental space to suggest Raciel's angina No nuchal rigidity or meningeal signs Resp normal respiratory effort and clear to auscultation bilaterally Cardio regular rate and regular rhythm Extremity normal to inspection Neuro oriented x3, CN's II-XII intact bilaterally and no sensory deficits noted Sensorium / Orientation: alert Motor Exam: strength 5/5 throughout Psych mental status grossly normal Skin no rashes or lesions noted and no wounds General Skin Exam: Negative for jaundice or pallor MDM MDM MDM Narrative Medical decision making narrative: Patient arrived to the ER with stable vitals and did not have signs of respiratory distress. With his report of persistent sore throat there is conc rex for missed strep pharyngitis versus mononucleosis versus epiglottitis or peritonsillar abscess versus Raciel's angina. Secondary to his basic labs were obtained along with a strep swab monoscreen and CT of the neck. Laboratory studies revealed no clinically significant findings and CT of the neck with IV contrast did not reveal epiglottitis or abscess or perforation or obstruction. With a negative workup this indicates his symptoms are most likely viral in nature and as he does not have airway compromise or signs of obstruction there is no need for further workup and he is otherwise safe for discharge. History & Record Review Discussion w/independent historian: Patient Lab Data Attestation: I reviewed the patient's lab results. Labs: Laboratory Results - last 24 hr 05/22/24 00:05 WBC 7.7 RBC 5.03 Hgb 13.8 Hct 42.0 MCV 83.5 MCH 27.4 MCHC 32.9 RDW Std Deviation 39.9 RDW Coeff of Radha 13.2 Plt Count 327 MPV 9.9 Immature Gran % (Auto) 0.300 Neut % (Auto) 59.0 Lymph % (Auto) 26.8 [place] % (Auto) 8.9 Eos % (Auto) 4.5 Baso % (Auto) 0.5 Absolute Neuts (auto) 4.5 Absolute Lymphs (auto) 2.07 Nucleated RBC % 0 Sodium 139 Potassium 3.7 Chloride 108 H Carbon Dioxide 25.0 Anion Gap 6 BUN 16 Creatinine 0.78 Estim Creat Clear Calc 112.70 Est GFR (MDRD) Af Amer 141 Est GFR (MDRD) Non-Af 117 BUN/Creatinine Ratio 20.6 H Glucose 112 H Calcium 8.3 L Monoscreen Negative Radiography Diagnostic Testing: Clinical Impression(s) from Imaging Studies Soft Tissue Neck CT 05/22/24 00:00 IMPRESSION: No lymphadenopathy. No fluid collection. Electronically Signed: Mango Ron MD at 0:34 EST , Discharge Plan Triage Chief Complaint: Sore Throat ED Provider: Konrad Stallworth Dx/Rx/DC Orders Clinical Impression: Pharyngitis Instructions: ED Pharyngitis, Viral Prescriptions: New prednisone 20 mg tablet 40 mg PO DAILY 5 Days Qty: 10 0RF oxycodone-acetaminophen [Percocet] 5-325 mg tablet 1 tab PO Q6H PRN (Reason: pain) 3 Days Qty: 12 0RF Primary Care Provider: Care Physician,No Primary Referrals: Alfred Bridges MD [Med Staff - Active Staff] - Care Physician,No Primary [Primary Care Provider] - Print Language: Portuguese Disposition Disposition: Home, Self Care Discharge Date/Time: 05/22/24 02:20
[2024-05-22] MEDS: oxyCODONE 5 MG Tablet 10 MG PO (02:18)
[2024-05-22 02:19] VITALS: BP 126/82; PULSE 88; RESP 16; TEMP 36.8; O2SAT 100
== END 2024-05-22 02:20 | disposition home or self-care (01) ==
PROVIDERS: Emergency Provider Emergency Medicine; Visit Provider Emergency Medicine
DX: J02.9 Acute pharyngitis, unspecified (principal)
CPT/HCPCS: 70491; 80048; 85025; 86308; 87651; 96361; 96374; 96375; 99283; Q9967; A4216

== ENCOUNTER 2025-03-08 18:46 | Emergency (ER) | payer SELFPAY ==
[2025-03-08 18:47] VITALS: BP 145/93; PULSE 65; RESP 18; TEMP 35.9; O2SAT 97; BMI 35.9
--- NOTE | 2025-03-08 20:10 | EX.ED.VIS.HA ---
HPI History of Present Illness Chief Complaint: Headache Informant: patient and other (interpreting software) Limited: language barrier Narrative Narrative: Patient is a 44-year-old male presenting with worsening headaches over the past two days. - Reports a headache for the past 2-3 weeks, with significant worsening over the last two days. - Pain has intensified to the point where he takes medication every 4 hours without relief. - Last night, took 500 mg Tylenol every 3 hours, but it was ineffective. - Associated symptoms include nausea and occasional dizziness; denies emesis, fever, visual changes, otalgia, or numbness in arms or legs. - Has a history of recurrent headaches every 3-4 months, which typically resolve on their own. - Denies any known medical problems. [employer] services were used for this visit. [facility] Medical History Diverticulitis Home Medications ?Medication ?Instructions ?Recorded ?Last Taken ?Type oxycodone-acetaminophen 5 mg-325 1 tab PO Q6H PRN pain 3 days #12 05/22/24 Unknown Rx mg tablet (Percocet) tabs prednisone 20 mg tablet 40 mg (2 x 20 mg) PO DAILY 5 days 05/22/24 Unknown Rx #10 tabs metoclopramide HCl 10 mg tablet 10 mg PO Q6H PRN nausea or 03/08/25 Unknown Rx headache #20 tabs Allergy/AdvReac Type Severity Reaction Status Date / Time No Known Allergies Allergy Verified 03/08/25 18:46 Social History Smoking Status: Never smoker ROS ROS ED Constitutional Constitutional ED: Denies chills or fever(s) Eyes Eyes: Reports blurry vision; Denies diplopia ENT ENT ED: Denies ear pain or sore throat Cardiovascular Cardiovascular: Denies chest pain or palpitations Respiratory/Chest Respiratory/Chest: Denies cough or dyspnea Gastrointestinal Gastrointestinal: Reports nausea; Denies abdominal pain, diarrhea or vomiting Genitourinary Genitourinary ED: Denies dysuria or urinary frequency Musculoskeletal Musculoskeletal: Denies back pain or myalgias Integumentary Denies abscess or rash Neurologic Neurologic: Reports headache(s); Denies disequilibrium, paresthesias or weakness EXAM Physical Exam Const Vital Signs: 03/08/25 18:47 10/01/25 20:46 03/08/25 22:00 Temperature 96.6 F L Temperature Source Temporal Pulse Rate 65 62 62 Respiratory Rate 18 16 Blood Pressure 145/93 H 122/69 H 128/81 H Blood Pressure Mean 110 86 96 Pulse Ox 97 98 97 Oxygen Delivery Method Room Air Room Air Room Air Positive well nourished and well developed General Appearance ED: well developed and NAD HEENT Reports normocephalic, TM's clear and moist mucous membranes atraumatic Tympanic Membrane ED: Yes TM's clear Eyes PERRL, EOMs intact bilaterally and conjunctivae normal Eyes Narrative: mild photophobia Neck no lymphadenopathy, supple and no meningeal signs Resp normal respiratory effort and clear to auscultation bilaterally GI non-tender and non-distended Palpation: soft Extremity normal to inspection and full ROM Neuro oriented x3 and CN's II-XII intact bilaterally Sensorium / Orientation: awake and alert Speech: speech normal Gait (Neuro): normal gait Motor Exam: strength 5/5 throughout Psych mental status grossly normal Skin Lesions: no lesions Rashes: no rashes MDM MDM MDM Narrative Medical decision making narrative: Assessment: The patient is a 44-year-old male presenting for three-week history of recurrent right retro-orbital and temporal headache that acutely worsened over the last two days and was refractory to home acetaminophen. He reports associated nausea and intermittent dizziness without vomiting, fever, visual changes, focal weakness, or sensory loss. He notes a remote head injury months ago but no recent trauma. Non-contrast head CT is normal and labs are normal, effectively ruling out acute intracranial hemorrhage, mass, or metabolic derangement. Given the normal studies and good response to IV toradol, fluids, and metoclopramide, a primary headache syndrome such as migraine is most likely; trigeminal neuralgia is considered less likely. Plan: - Administered 1 L IV normal saline, IV Toradol, and IV Reglan in the ED with good symptom improvement - Prescribed oral Reglan PRN nausea/headache on discharge - Discharge home with outpatient neurology follow-up for persistent/recurrent headaches Diagnostics: - Non-contrast CT head: normal study; no acute intracranial process. Independently reviewed and agreed with radiology report by Toni heck - Labs: basic metabolic panel and CBC reported as normal Reevaluations: - Reassessed after medications and fluids: patient reports significant improvement, only mild residual discomfort, tolerating oral intake, neurologically intact Diagnoses: Recurrent headache; Encounter for examination and observation following other accident Lab Data Attestation: I reviewed the patient's lab results. Labs: Laboratory Results - last 24 hr 03/08/25 20:20 WBC 11.5 H RBC 5.49 Hgb 15.1 Hct 45.0 MCV 82.0 MCH 27.5 MCHC 33.6 RDW Std Deviation 39.5 RDW Coeff of Radha 13.3 Plt Count 364 MPV 9.8 Immature Gran % (Auto) 0.500 Neut % (Auto) 76.2 H Lymph % (Auto) 15.3 L [place] % (Auto) 4.8 Eos % (Auto) 2.7 Baso % (Auto) 0.5 Absolute Neuts (auto) 8.7 H Absolute Lymphs (auto) 1.75 Nucleated RBC % 0 Sodium 137 Potassium 3.7 Chloride 102 Carbon Dioxide 22.8 Anion Gap 13 BUN 11 Creatinine 0.77 Estim Creat Clear Calc 111.98 Est GFR (MDRD) Non-Af 115 BUN/Creatinine Ratio 14.5 Glucose 123 H Calcium 9.1 Radiography Diagnostic Testing: Clinical Impression(s) from Imaging Studies Brain CT 03/08/25 20:50 IMPRESSION: Unremarkable head CT. 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 Prescriptions: New metoclopramide HCl 10 mg tablet 10 mg PO Q6H PRN (Reason: nausea or headache) Qty: 20 0RF No Action prednisone 20 mg tablet 40 mg PO DAILY 5 Days Qty: 10 0RF oxycodone-acetaminophen [Percocet] 5-325 mg tablet 1 tab PO Q6H PRN (Reason: pain) 3 Days Qty: 12 0RF Primary Care Provider: Care Physician,No Primary Referrals: Zenon Ballard MD [Non-Staff -Ordering Privileges, Neurology] Mihir Jj MD [Med Staff - [employer] Apprentice, Internal Medicine] Referral Note: for primary care Activity Restrictions/Additional Instructions: - CT scan of your head and blood tests were reviewed and found to be normal. - You received IV fluids, Toradol, and Reglan in the ED, which improved your headache. - Fill your prescription for metoclopramide and take it as needed for nausea and/or headache. - Schedule and attend a neurology appointment for further evaluation of your persistent headaches. Print Language: Japanese Disposition Disposition: Home, Self Care
[2025-03-08] MEDS: Ketorolac 30 MG/ML Syringe IV (20:20)
[2025-03-08 20:32] LABS: Hematocrit 45.0 % (40-54); Hemoglobin 15.1 g/dL (13.0-16.5); Immature Granulocytes Count 0.060 X10^3/uL (0.0-0.0); Mean Corp Hgb Conc 33.6 g/dL (32-36); Mean Corpuscular Volume 82.0 fL (80-94); Mean Platelet Vol. 9.8 fl (6.2-12.0); NRBC Flagged by Analyzer 0 % (0-5); Platelet Count 364 K/mm3 (150-450); RBC Distribution Width CV 13.3 % (11.6-14.6); RBC Distribution Width SD 39.5 fl (35.1-43.9); Red Blood Count 5.49 M/mm3 (4.6-6.2); White Blood Count 11.5 K/mm3 (4.4-11.0)
[2025-03-08 20:46] VITALS: BP 122/69; PULSE 62; O2SAT 98
[2025-03-08 20:46] LABS: Anion Gap 13 (5-15); BUN 11 mg/dL (4-19); BUN/Creat Ratio 14.5 RATIO (10-20); Calcium,Total 9.1 mg/dL (7.6-11.0); Carbon Dioxide 22.8 mmol/L (21.0-32.0); Chloride 102 mmol/L (98-108); Estimated Creatinine Clearance 111.98 ml/min (50-250); Glucose 123 mg/dL (70-99); Potassium 3.7 mmol/L (3.3-5.1)
--- NOTE | 2025-03-08 20:50 | CT_ITS ---
PROCEDURE: CT BRAIN/HEAD WITHOUT CONTRAST 03/08/2025 REASON FOR EXAM: HEADACHE TECHNIQUE: Procedure Code: CTBR Modality: CT Procedure: BRAIN/HEAD WITHOUT CONTRAST Coronal and Sagittal reconstruction series were provided. One or more dose reduction techniques were used (e.g., Automated exposure control, adjustment of the mA and/or kV according to patient size, use of iterative reconstruction technique. RADIATION DOSE SUMMARY: CTDlvol: 44.99 mGy DLP: 796.11 mGycm COMPARISON: None. FINDINGS: No acute intracranial hemorrhage, extra-axial collection, mass effect or evidence of acute infarct. Ventricles and subarachnoid spaces are normal in size. Orbital contents are unremarkable. Intact skull base and calvarium. Clear paranasal sinuses and mastoid air cells. CT/Brain/Head without Contrast IMPRESSION: Unremarkable head CT. Reading Location: [id number]
[2025-03-08 22:00] VITALS: BP 128/81; PULSE 62; RESP 16; O2SAT 97
[2025-03-08 22:33] VITALS: BP 124/88; PULSE 66; RESP 14; TEMP 36.4; O2SAT 100
== END 2025-03-08 22:33 | disposition home or self-care (01) ==
PROVIDERS: Emergency Provider Emergency Medicine; Visit Provider Emergency Medicine
DX: R51.9 Headache, unspecified (principal)
CPT/HCPCS: 70450; 80048; 85025; 96374; 96375; 99283; A4216